=== PATIENT | female | born 1970 | race Caucasian/White ===

== ENCOUNTER 2023-04-27 07:02 | Day surgery (SDC) | payer BC ==
[~2023-04-27 07:02] MED LIST: Dextrose 5%-0.45% NaCl 1,000 ML IV SCH
[2023-04-27] MEDS ORDERED: fentaNYL 100 MCG/2 ML SDV IV ONE ×3 (07:03→08:37)
[2023-04-27] MEDS ORDERED: Midazolam 1 MG/ML 2 ML SDV IV ONE ×3 (07:03→08:38)
[2023-04-27] MEDS ORDERED: Midazolam 1 MG/ML 2 ML SDV ONE (08:28)
[2023-04-27] MEDS ORDERED: fentaNYL 100 MCG/2 ML SDV ONE (08:29)
[2023-04-27 10:17] VITALS: BP 106/63; PULSE 47
== END 2023-04-27 10:29 | disposition home or self-care (01) ==
LOC: DL.ENDO 07:02
PROVIDERS: ATTEND Internal Medicine Gastroenterology
DX: K20.90 Esophagitis, unspecified without bleeding (principal); K22.2 Esophageal obstruction; E78.5 Hyperlipidemia, unspecified; E66.09 Other obesity due to excess calories; Z68.30 Body mass index [BMI] 30.0-30.9, adult
CPT/HCPCS: 87077; J2250; J3010; J7042